=== PATIENT | male | born 1960 | race Caucasian/White ===

== ENCOUNTER 2017-05-31 16:18 | Emergency (ER) | payer MEDICAID ==
[~2017-05-31] VITALS: Ht 162.6 cm; Wt 50.0 kg
[~2017-05-31 16:18] MED LIST: ACET-1008 PO; CLIN-26 PO; CLIN-80 PO; COROTSUS LEFT EAR; HYDR-569 PO; LOPE-155 PO; MOT200T PO; MUPI15CR4 TP; NAPR-56 PO; NAPR-762 PO; ONDA4TAB6 PO
[2017-05-31 16:26] VITALS: BP 150/109
== END 2017-05-31 21:54 | disposition left against medical advice (07) ==
LOC: ER 16:19
DX: M25.562 Pain in left knee (principal); Z53.21 Procedure and treatment not carried out due to patient leaving prior to being seen by health care provider
CPT/HCPCS: 73564; 99281

== ENCOUNTER → 2017-08-03 | Emergency (ER) | payer MEDICAID ==
[~2017-08-03] VITALS: Ht 157.5 cm; Wt 59.5 kg
[~2017-08-03] MED LIST changes: +iohexol 300mg/ml 100ml inj. ONE; +morphine 4 MG/ML inj SYRINge IV ONE; +normal saline 1000ML IV soln IV ONE; +piperacillin/tazo 3.375gm/50ml 50 ML IV ONE; +potassium Cl oral solution 20 MEQ/15 ML PO ONE; +vancomycin/NS 1 GM ADD-VANTAGE 250 ML IV ONE
[2017-08-03 08:06] VITALS: BP 162/90
[2017-08-03 09:22] LABS: BASOPHILS % (AUTO) 0.3 % (0-1); EOSINOPHILS # (AUTO) 0.3 X10'3 (0-0.9); EOSINOPHILS % (AUTO) 2.4 % (0-6); HEMOGLOBIN 13.2 g/dl (14.0-17.9); LYMPHOCYTES # (AUTO) 1.4 X10'3 (1.1-4.8); LYMPHOCYTES % (AUTO) 11.6 % (21-51); MEAN CORPUSCULAR HEMOGLOBIN 29.5 PG (27.0-31.0); MEAN CORPUSCULAR VOLUME 86.8 FL (78-98); MEAN PLATELET VOLUME 9.2 FL (7.4-10.4); MONOCYTES # (AUTO) 0.9 X10'3 (0-0.9); MONOCYTES % (AUTO) 7.5 % (2-12); NEUTROPHILS # (AUTO) 9.2 X10'3 (1.8-7.7); NEUTROPHILS % (AUTO) 78.2 % (42-75); PLATELET COUNT 270 X10'3 (140-440); RED BLOOD COUNT 4.49 X10'6 (4.70-6.10); RED CELL DISTRIBUTION WIDTH 14.9 % (11.5-14.5); WHITE BLOOD COUNT 11.8 X10'3 (4.5-11.0)
[2017-08-03 09:36] LABS: ALANINE AMINOTRANSFERASE 35 U/L (12-78); ALBUMIN 2.9 G/DL (3.4-5.0); ALBUMIN/GLOBULIN RATIO 0.7 (1.1-1.5); ALKALINE PHOSPHATASE 164 IU/L (46-116); ANION GAP 9 (8-16); ASPARTATE AMINO TRANSFERASE 35 U/L (10-37); BILIRUBIN,TOTAL 0.3 MG/DL (0.1-1.0); BLOOD UREA NITROGEN 23 MG/DL (7-18); BUN/CREATININE RATIO 27.1 (5.4-32.0); CALCIUM 8.1 MG/DL (8.5-10.1); CHLORIDE 107 MMOL/L (99-107); CREATININE 0.85 MG/DL (0.60-1.10); ETHANOL < 0.010 GM/DL (0.0-0.010); GLUCOSE 93 MG/DL (70-104); POTASSIUM 3.1 MMOL/L (3.5-5.1); SODIUM 142 MMOL/L (135-145); TOTAL CARBON DIOXIDE 26.1 MMOL/L (24-32); eGFR > 90 ML/MIN
== END | disposition short-term general hospital (02) ==
LOC: ER 07:53
DX: C44.209 Unspecified malignant neoplasm of skin of left ear and external auricular canal (principal); L98.9 Disorder of the skin and subcutaneous tissue, unspecified; A41.9 Sepsis, unspecified organism; F19.10 Other psychoactive substance abuse, uncomplicated; J45.909 Unspecified asthma, uncomplicated; G89.29 Other chronic pain; F11.10 Opioid abuse, uncomplicated; F15.10 Other stimulant abuse, uncomplicated; Z86.19 Personal history of other infectious and parasitic diseases; Z86.14 Personal history of Methicillin resistant Staphylococcus aureus infection; Z59.0 Homelessness; Z56.0 Unemployment, unspecified; Z88.6 Allergy status to analgesic agent; Z91.040 Latex allergy status; Z79.899 Other long term (current) drug therapy
CPT/HCPCS: 36415; 70450; 70487; 80053; 80320; 83605; 85025; 87040; 96365; 96368; 96375; 99291; 99292; J2270; J2543; J3370; J7030; Q9967; 96366

== ENCOUNTER 2018-11-30 09:11 | Emergency (ER) | payer MEDICAID ==
[~2018-11-30] VITALS: Ht 170.2 cm; Wt 79.0 kg
[~2018-11-30 09:11] MED LIST changes: -CLIN-80 PO; +CLIN-96 PO; +HYDR-4383 PO; -HYDR-569 PO; -LOPE-155 PO; +LOPE-190 PO; -iohexol 300mg/ml 100ml inj. ONE; -morphine 4 MG/ML inj SYRINge IV ONE; -normal saline 1000ML IV soln IV ONE; -piperacillin/tazo 3.375gm/50ml 50 ML IV ONE; -potassium Cl oral solution 20 MEQ/15 ML PO ONE; -vancomycin/NS 1 GM ADD-VANTAGE 250 ML IV ONE
[2018-11-30 09:20] VITALS: BP 138/99
[2018-11-30] MEDS ORDERED: CANE-100 (09:35)
[2018-11-30] MEDS ORDERED: IBUP-1986 PO (09:35)
[2018-11-30] MEDS ORDERED: TRAM50TA2 PO (09:45)
== END 2018-11-30 09:58 | disposition home or self-care (01) ==
LOC: ER 09:12
DX: M25.531 Pain in right wrist (principal); M25.511 Pain in right shoulder; J45.909 Unspecified asthma, uncomplicated; G89.29 Other chronic pain; M10.9 Gout, unspecified; F31.9 Bipolar disorder, unspecified; F10.99 Alcohol use, unspecified with unspecified alcohol-induced disorder; F15.90 Other stimulant use, unspecified, uncomplicated; F11.90 Opioid use, unspecified, uncomplicated; Z86.19 Personal history of other infectious and parasitic diseases; Z86.14 Personal history of Methicillin resistant Staphylococcus aureus infection; Z98.890 Other specified postprocedural states; Z59.0 Homelessness; Z56.0 Unemployment, unspecified; Z88.6 Allergy status to analgesic agent; Z91.040 Latex allergy status; Z79.899 Other long term (current) drug therapy; Y90.9 Presence of alcohol in blood, level not specified
CPT/HCPCS: 99284

== ENCOUNTER 2018-12-02 11:30 | Emergency (ER) | payer MEDICAID ==
[~2018-12-02] VITALS: Ht 172.7 cm; Wt 79.5 kg
[~2018-12-02 11:30] MED LIST changes: +CANE-100; +IBUP-1986 PO; +TRAM50TA2 PO
--- NOTE | 2018-12-02 12:09 | NUR ---
Humberto hernandez in [facility] - 12/02/18 at 1211 by KIRSTEN PT REQUESTING TO KNOW WHERE HIS MORPHINE IS LOCATED.
--- NOTE | 2018-12-02 12:11 | NUR ---
PT REQUESTING TO KN WHERE HIS HEROIN IS LOCATED?? DR VIDAL NOTIFIED.
--- NOTE | 2018-12-02 12:14 | NUR ---
DR VIDAL GAVE PT 2 GLASSES OF WATER.
--- NOTE | 2018-12-02 12:20 | NUR ---
PT IS REFUSING tX FROM PHELBOTAMIST. pT REMOVED CARDIAC [place]. rEFUSING TO PUT BACK ON.
--- NOTE | 2018-12-02 12:31 | NUR ---
DR VIDAL NOTIFIED OF PT'S REFUSAL OF ANY ER TREATEMENT.
[2018-12-02 13:18] LABS: CLARITY,URINE SLIGHTLY CLOUDY (Clear); COLOR,URINE YELLOW (Yellow); GLUCOSE, URINE NEGATIVE (Neg); KETONES,URINE TRACE mg/dl (Neg); LEUKOCYTE ESTERASE ,URINE NEGATIVE (Neg); NITRITES, URINE NEGATIVE (Neg); OCCULT BLOOD,URINE MODERATE (Neg); PH,URINE 5.5 (4.8-8.0); PROTEIN,URINE TRACE mg/dl (Neg); UROBILINOGEN,URINE 0.2 E.U/dL (0.2-1.0)
[2018-12-02 13:22] LABS: UA COLLECTION TYPE URINAL
[2018-12-02 13:26] LABS: BACTERIA,URINE FEW /HPF (Neg); MUCUS STRANDS MODERATE /LPF (Neg); SPERM MODERATE /HPF (NEGATIVE); SQUAMOUS EPITHELIAL CELL,UR FEW /LPF (FEW)
[2018-12-02 13:27] LABS: FINE GRANULAR CAST 0-3 /LPF (NEGATIVE)
[2018-12-02 13:39] VITALS: BP 148/94
[2018-12-02 13:39] LABS: URINE AMPHETAMINE SCREEN POSITIVE (Neg); URINE BARBITUATE SCREEN NEGATIVE (Neg); URINE BENZODIAZEPINES SCREEN POSITIVE (Neg); URINE CANNABINOID SCREEN POSITIVE (Neg); URINE COCAINE SCREEN NEGATIVE (Neg); URINE METHADONE SCREEN NEGATIVE (Neg); URINE OPIATE SCREEN POSITIVE (Neg); URINE PHENCYCLIDINE SCREEN NEGATIVE (Neg)
[2018-12-02] MEDS ORDERED: CEPH500C5 PO (13:46)
[2018-12-02] MEDS ORDERED: acetaminophen 325mg tablet PO ONE (13:55)
== END 2018-12-02 14:02 | disposition home or self-care (01) ==
LOC: ER 11:31
DX: F19.10 Other psychoactive substance abuse, uncomplicated (principal); N39.0 Urinary tract infection, site not specified; J45.909 Unspecified asthma, uncomplicated; G89.29 Other chronic pain; M10.9 Gout, unspecified; F31.9 Bipolar disorder, unspecified; F10.99 Alcohol use, unspecified with unspecified alcohol-induced disorder; F15.90 Other stimulant use, unspecified, uncomplicated; F11.90 Opioid use, unspecified, uncomplicated; Z86.14 Personal history of Methicillin resistant Staphylococcus aureus infection; Z86.19 Personal history of other infectious and parasitic diseases; Z59.0 Homelessness; Z56.0 Unemployment, unspecified; Z98.890 Other specified postprocedural states; Z88.6 Allergy status to analgesic agent; Z91.040 Latex allergy status; Z79.899 Other long term (current) drug therapy; Y90.9 Presence of alcohol in blood, level not specified
CPT/HCPCS: 80305; 81001; 87088; 93005; 99284